=== PATIENT | female | born 1925 | race Caucasian/White ===

== ENCOUNTER → 2017-03-12 | Outpatient (CLI) | payer OTHER ==
[~2017-03-12] MED LIST: ACETAMINOPHEN650 M1 PO; AMLODIPINE BESYL5 MG PO; BAYER CHEWABLE81 MG PO; HAZAR PO; HYZAAR 100-12.1 EACH PO; HYZAAR 100-25 T1 TA1 PO; LASIX20 MG PO; LOSARTAN POTASS50 MG PO; METOPROLOL TAR25 MG PO; NORVASC PO; PANTOPRAZOLE SO40 MG PO; SYNTHROID PO; SYNTHROID125 PO
--- NOTE | ~2017-03-12 | MY11 ---
[facility] A Service of [facility] RADIOLOGY TEXT RESULTS PATIENT: ANGEL GARCÍA LOCATION: [facility] : [birth year] UNIT #: [id number] AGE: [address]: Trina Turner MD SEX: F ORDER DR: [id number] [facility] [address] [place], [place] [address] [id number] O MR#: [id number] Acc #: [id number] NAME: ANGEL GARCÍA : 1925 SEX: F STUDY DATE/TIME: 03/12/2017 9:23 UNIT: [facility] ROOM: STUDY DESCRIPTION: MY Mammogram Screening Dig Alvaro Attending Physician: Trina Turner M.D. Referring Physician: Trina Turner M.D. Ordering Physician: Trina Turner M.D. Primary Care Physician: Trina Turner M.D. MEDICAL IMAGING REPORT This report is preliminary unless electronic signature is present EXAM Digital screening mammogram, 03/12/2017 HISTORY 89-year-old woman with no risk elevation. Annual screening. COMPARISON Mammograms 09/14/2011, 04/27/2014, 08/10/2015. FINDINGS Digital imaging of each breast was completed utilizing screening protocol. Review includes FDA-approved CAD device. Breast parenchyma is partially fatty replaced. Occasional benign calcification noted in each breast. I see no interval occurring mass. There are no suspicious microcalcifications and no architectural deformity. IMPRESSION Negative mammogram. Annual screening is optional at this age. Patients over the age of 40 are entered into a reminder system with target due date for the next mammogram. A result letter will also be sent to the patient. BIRADS: 1 Negative STAT * RESULT Dictated by... Arnel Sims M.D. THIS IS AN ELECTRONICALLY VERIFIED REPORT Arnel Sims M.D. at 03/12/2017 10:50 AM JEVON/philip STS. [facility] A Service of [facility] & [facility] RADIOLOGY TEXT RESULTS PATIENT: NAGEL GARCÍA LOCATION: [place] #: [id number] : [birth year] UNIT #: [id number] AGE: [address]: Trina Turner MD SEX: F ORDER DR: TD: 03/12/2017 10:18 JOB #: [id number] MEDICAL IMAGING REPORT Page 1 of 1 COPY
--- NOTE | ~2017-03-12 | CR63 ---
[facility] A Service of [facility] RADIOLOGY TEXT RESULTS PATIENT: ANGEL GARCÍA LOCATION: [facility] : [birth year] UNIT #: [id number] AGE: [address]: Trina Turner MD SEX: F ORDER DR: [id number] [facility] [address] [facility]. [place], [place] [address] [id number] O MR#: [id number] Acc #: [id number] NAME: ANGEL GARCÍA : 1925 SEX: F STUDY DATE/TIME: 03/12/2017 10:14 UNIT: [facility] ROOM: STUDY DESCRIPTION: CR Chest 2 View Attending Physician: Trina Turner M.D. Referring Physician: Trina Turner M.D. Ordering Physician: Srinivas Turner M.D. Primary Care Physician: Trina Turner M.D. MEDICAL IMAGING REPORT This report is preliminary unless electronic signature is present EXAM Chest, 2 views, 03/12/2017, 1014 hours. CLINICAL HISTORY 89-year-old woman with chronic cough for 6 months, shortness of air, and weight loss. COMPARISON 09/12/2011 FINDINGS Upright PA and lateral views of the chest demonstrate stable moderate cardiomegaly and tortuous atherosclerotic aorta. The pulmonary vasculature is normal. The lungs demonstrate calcified granulomatous changes. There is no definite acute pulmonary density or effusion. IMPRESSION Stable moderate cardiomegaly and tortuous aorta. Lungs demonstrate benign calcified granulomatous change. There is no acute cardiopulmonary findings. No appreciable change from 09/12/2011. Dictated by... Rita Ramires M.D. THIS IS AN ELECTRONICALLY VERIFIED REPORT Rita Ramires M.D. at 03/13/2017 9:28 AM TROYM/ravinder TD: 03/12/2017 14:41 JOB #: [id number] [facility] A Service [facility] RADIOLOGY TEXT RESULTS PATIENT: ANGEL GARCÍA LOCATION: [facility] : [birth year] UNIT #: [id number] AGE: [address]: Trina Turner MD SEX: F ORDER DR: MEDICAL IMAGING REPORT Page 1 of 1 COPY
== END | disposition home or self-care (01) ==
LOC: CWCC 09:14 → CRAD 09:14 → CWCC 09:15
DX: Z12.31 Encounter for screening mammogram for malignant neoplasm of breast (principal); R05 Cough; R63.4 Abnormal weight loss; I51.7 Cardiomegaly; I77.1 Stricture of artery; J84.10 Pulmonary fibrosis, unspecified
CPT/HCPCS: 71020; G0202

== ENCOUNTER 2017-04-15 17:10 | Observation (INO) | payer OTHER ==
--- NOTE | ~2017-04-15 | EKG ---
PATIENT: ANGEL GARCÍA UNIT #: [id number] Ventricular Rate: 87 BPM Atrial Rate: 87 BPM P-R Interval: 186 ms QRS Duration: 108 ms Q-T Interval: 348 ms QTC Calculation(Bezet): 418 ms P Mansfield: 70 degrees Calculated R Mansfield: -40 degrees Calculated T Mansfield: 43 degrees Diagnosis Line: Normal sinus rhythm Diagnosis Line: Biatrial enlargement Diagnosis Line: Left axis deviation Diagnosis Line: Left anterior fascicular block Diagnosis Line: Incomplete right bundle branch block Diagnosis Line: Abnormal ECG Diagnosis Line: When compared with ECG of 17-MAR-2016 09:07, Diagnosis Line: Premature ventricular complexes are no longer Diagnosis Line: Present Diagnosis Line: Confirmed by CHRISTIANO DOMINGUEZ MD ([id number]) on Diagnosis Line: 04/16/2017 9:11:11 PM INTERPRETING MD: GEM
--- NOTE | ~2017-04-15 | DS ---
Unit #: [id number] #: [id number] Patient: BARBIE BURR [id number] [address] [address] [id number] I MR#: [id number] NAME: BARBIE BURR. ROOM: 550 Age: 89 Sex: F Admission Date: 04/15/2017 : 1925 Discharge Date: 04/19/2017 Attending Physician: Ajay Armendariz M.D. Primary Care Physician: Trina Turner M.D. DISCHARGE SUMMARY FINAL DIAGNOSES 1. Chest pain: Acute myocardial infarction has been ruled out. It is kind of atypical. 2. There is a possibility of interstitial lung disease. 3. Valvular heart disease with severe mitral valve prolapse and severe mitral regurgitation, moderate tricuspid regurgitation, right ventricular systolic pressure is 45 to 50 mm and left ventricular ejection fraction of 55%. 4. Hypothyroidism. 5. Hypernatremia which is resolved. 6. Hypokalemia which is improved. 7. Leukocytosis, resolved. DISCHARGE MEDICATIONS 1. Tylenol 650 q.6 p.r.n. 2. Norvasc 5 mg daily. 3. Hyzaar 110/12.5, one tablet daily. 4. Protonix 40 mg daily. 5. Aspirin 81 mg daily. 6. Synthroid 100 mcg p.o. daily. CONSULTATION DURING HOSPITALIZATION 1. Dr. Sheehan - Cardiology services. 2. Dr. Cabello - Pulmonary services. LAB WORKUP ON DISCHARGE Procalcitonin level 0.08. CBC shows WBC 12.2, hemoglobin 11.9, hematocrit 36.1, platelet count of 248. BMP shows sodium 134, potassium 4.0, chloride 103, BUN 28, creatinine 0.7. Free T4 is 1.16 and free T3 is 2.2 which is still low. TSH is 0.30. Troponin 0.03. Ultrasound of lower extremity - negative for DVT. CTA of the chest was done which shows no visible pulmonary embolism. D-dimer was elevated to 997. BNP 76, in normal range. HOSPITAL COURSE Ms. Barbie Burr is an 89-year-old female, very healthy and very active, Unit #: [id number] #: [id number] Patient: BARBIE BURR still works in [email or web address], came with a complaint of chest pain. The patient was evaluated by Dr. Sheehan, cardiology services. Acute myocardial infarction was ruled out. CTA of the chest was done which ruled out for pulmonary embolism. It has been years since she has had ischemic heart disease workup. The patient had a long discussion with Dr. Sheehan. The patient has refused at this time. She does have significant valvular heart disease which includes severe mitral regurgitation and mitral valve prolapse. She follows up with Dr. Zimmerman. The patient continued to have cough and some chest pain. The patient was seen by Dr. Cabello from pulmonary services. The patient's CT of chest is concerning for interstitial lung disease. It is unclear based on this imaging if she has typical idiopathic pulmonary fibrosis versus interstitial lung disease. The patient will need dedicated high resolution CT chest and she will need PFT as outpatient. The patient will follow with Dr. Cabello as outpatient to continue with this workup. The patient was also started on PPI and she seems to have gotten better with cough. Maybe there is some component of gastroesophageal reflux and that could cause interstitial disease too. The patient is doing well and is being discharged home. EXAMINATION ON DISCHARGE Blood pressure 123/77, respiratory rate 188, pulse is 69, temperature 98.2, oxygen saturation is 99%. HEENT: Head is normocephalic. CHEST: Fair air entry. CVS: Regular rhythm. Murmur is heard. EXTREMITIES: Negative edema. DISCHARGE INSTRUCTIONS 1. The patient is being discharged home in stable condition. 2. Medication as per Med Rec. 3. Followup with Dr. Cabello in two weeks. Do have a workup done, possible high resolution CT scan and PFT. 4. [facility] to eval and treat. 5. Patient's TSH is low with low T3. This needs to be addressed as outpatient. She is on Synthroid. Dictated by... Eugenio Farias TD: 04/22/2017 08:29 JOB #: [id number] Unit #: [id number] #: [id number] Patient: BARBIE BURR DISCHARGE SUMMARY Page 1 of 1 X Marycarmen Caballero MD X DISCHARGE SUMMARY
--- NOTE | ~2017-04-15 | CO ---
Unit #: [id number] #: [id number] Patient: ANGEL BURR [id number] [address] [place], [place] [address] [id number] I MR#: [id number] NAME: ANGEL BURR. ROOM: 550 Age: 89 Sex: F Admission Date: 04/15/2017 : 1925 Attending Physician: Ajay Armendariz M.D. Primary Care Physician: Trina Turner M.D. Consultation Date: 04/16/2017 CONSULTATION REPORT REASON FOR CONSULTATION Chest pain. HISTORY OF PRESENT ILLNESS This is an 89-year-old white female with known history of having severe mitral regurgitation, mitral valve prolapse, had seen Dr. Zimmerman in the past and is not a surgical candidate at this time for valve replacement. The patient has also hypertension, hypothyroidism. Last stress test was a few years ago that was normal. The patient came into the emergency room on this admission with substernal chest tightness. She says for about a week that she has been having some tingling and numbness in her bilateral hands. She does not think there is swelling, but she said she has not felt well for about a week with no specific symptoms. She said yesterday she was sitting after breakfast and just started feeling some midsternal chest pressure that started more in the midsternal region and she said it radiated up to the right anterior chest wall. She said it was a little worse with deep breathing or cough. She says she has a little bit of swelling in her lower extremity especially in the left, but she is on a water pill. She denies that the discomfort radiated up into the neck, bilateral jaws, or shoulders. She has not had any palpitations. No dizziness, presyncope, or syncope. No nausea, vomiting, or diarrhea. Has occasional dry cough, but no fever or chills. In the emergency room, the patient's blood pressure was 167/77, heart rate was 90, respirations 18, temperature 98.3, O2 saturations 97% on room air. Her EKG shows normal sinus rhythm, did show some biatrial enlargement and an incomplete right bundle-branch block, left ventricular hypertrophy. The patient's initial labs, creatinine was 0.8, sodium is down to 132, potassium 3.7. BNP 76. Initial cardiac enzymes are negative. D-dimer is 997. The patient's x-rays showed cardiomegaly, otherwise nothing acute. CT of chest with PE protocol, no visible pulmonary embolism. There was some interstitial prominence in both lung bases which is probably could be fibrosis. The patient was given aspirin and given some IV fluids. Cardiology has been consulted to assist with evaluation and management. PAST MEDICAL HISTORY 1. History of severe mitral regurgitation and mitral valve prolapse. 2. Last 2D echo in March 2016 revealed LVEF of 55% with severe mitral valve prolapse, mitral valve leaflet prolapse, and severe mitral regurgitation, moderate tricuspid regurgitation with elevated RVSP 45 to 50 mmHg and mild LVH, mildly dilated left atrium. Unit #: [id number] #: [id number] Patient: ANGEL BURR 3. In 2008, exercise Cardiolite stress test, told it was normal, details unavailable. 4. Hypertension. 5. Hypothyroidism. 6. Nonsmoker. 7. Active with Dr. Astudillo at [facility]. PAST SURGICAL HISTORY None. HOME MEDICATIONS 1. Norvasc 5 mg p.o. daily. 2. Synthroid 100 mcg p.o. daily. 3. Hyzaar 100/12.5 one tablet p.o. daily. ALLERGIES No known drug allergies. SOCIAL HISTORY The patient lives with her family. She tries to do some light chores around the house. No alcohol, tobacco, or illicit drug abuse. FAMILY HISTORY No known coronary artery disease in immediate family members. REVIEW OF SYSTEMS See details in HPI. PHYSICAL EXAMINATION GENERAL: Ms. Burr is an 89-year-old white female, in no acute respiratory distress. She is awake, alert, and oriented. VITAL SIGNS: Blood pressure is 118/68, heart rate 88, respirations 16, temperature 99.1, O2 saturations 96% on room air. NECK: Trachea midline. No thyromegaly or lymphadenopathy. Normal carotid upstrokes. No jugular venous distention. HEART: S1 and S2. Regular rate and rhythm. 3/6 systolic murmur over the mitral area of left sternal border. LUNGS: Diminished, otherwise clear. ABDOMEN: Soft and nontender. EXTREMITIES: Pedal pulses are palpable. Trace pedal edema. DIAGNOSTIC STUDIES LABORATORY RESULTS: Glucose is 118, BUN 22, creatinine 0.8, EGFR 65.4, sodium was 132 on admission and this morning is 129, potassium is 3.7, chloride 96, CO2 of 25, calcium is 8.5, total protein 7.5, albumin 4.0, bilirubin total 0.8, AST 22, ALT 12, and alkaline phosphatase is 76. BNP 76. WBC 15.6, hemoglobin 12.9, hematocrit 37.9, platelets is 224. Initial cardiac enzymes; CK-MB is less than 1.0, troponin less than 0.05. INR is 1.0. D-dimer is 997. Urinalysis is pending. Chest x-ray reveals cardiomegaly and granulomatous disease, some scarring or atelectasis in the bases. CT of the chest with PE protocol shows no visible pulmonary embolism, interstitial prominence is noted in both lung bases which is probably fibrosis. EKG shows normal sinus rhythm with ventricular rate 87 beats per minute, Unit #: [id number] #: [id number] Patient: ANGEL BURR biatrial enlargement, left axis deviation, incomplete right bundle-branch block, left ventricular hypertrophy with ventricular rate of 87 beats per minute. IMPRESSION 1. Chest pain, questionable etiology. 2. Severe mitral regurgitation, severe mitral valve prolapse. 3. Elevated D-dimer. 4. Left ventricular ejection fraction of 55% on last 2D echo on 03/23/2016 with some moderate tricuspid regurgitation, elevated right ventricular systolic pressure of 45 to 50 mmHg. 5. Hypertension. 6. Hypothyroidism. 7. Hyponatremia. PLAN 1. Cardiology consult to assist with evaluating the patient's chest pain. 2. A CT of the chest to rule out PE, has been done and it is negative. The patient's chest pain is somewhat atypical; however, it has been years since she had ischemic heart disease workup. However, Dr. Sheehan had a long discussion with the patient, and she had refused, she has to go to have her valve replaced and she does not want to have a cardiac catheterization, and so they agreed that there is no point in doing a stress test. Her cardiac enzymes have been remaining negative. Her EKG does not show anything acute, so we will continue with conservative medical management. 3. We will check troponin and EKG in the morning. If those are negative, she will be permissible to be discharged home with followup with Dr. Astduillo, her senior systems analyst at [facility]. 4. The patient's sodium is low, maybe is likely secondary to being on hydrochlorothiazide. We will make any adjustments to make final recommendations before discharge. 5. Her heart rate and blood pressure are stable. On exam, there is no signs or symptoms of acute congestive heart failure. 6. The patient is on daily dose of Lovenox, so we will monitor. 7. The patient was started on Protonix, so her symptoms may even be some type of reflux or GI in nature. 8. Further recommendations pending per Dr. Sheehan. Thank you very much for allowing us to assist in care. Dictated by... Bret Isaacs/torrie TD: 04/17/2017 12:59 JOB #: [id number] CC: Cassius Astudillo M.D. Unit #: [id number] #: [id number] Patient: ANGEL BURR CONSULTATION REPORT Page 1 of 1 X Belia Reyes APRN X CONSULTATION REPORT
--- NOTE | ~2017-04-15 | CR72 ---
[facility] of [facility] RADIOLOGY TEXT RESULTS PATIENT: ANGEL GARCÍA LOCATION: [place] [address] : [birth year] UNIT #: [id number] AGE: [address]: Ajay Armendariz MD SEX: F ORDER DR: [id number] [facility] [address] [place], [place] [address] [id number] E MR#: [id number] Acc #: [id number] NAME: ANGEL GARCÍA. : 1925 SEX: F STUDY DATE/TIME: 04/15/2017 18:10 UNIT: [facility] ROOM: STUDY DESCRIPTION: CR Chest Single View Portable Attending Physician: Chan Bowles D.O. Ordering Physician: Chung Carey M.D. Primary Care Physician: Trina Turner M.D. MEDICAL IMAGING REPORT This report is preliminary unless electronic signature is present EXAM Portable chest, 04/15/2017 INDICATIONS Chest pain, shortness of air and cough today. FINDINGS AP portable chest is compared with 03/12/2017. Cardiomegaly is again seen. There is diffuse atherosclerotic disease in the aorta. There is degenerative disease and scoliosis in the spine. Scattered granulomatous calcifications are noted in the lungs. There is some mild atelectasis or scarring in the bases. No pneumothorax. IMPRESSION Cardiomegaly and old granulomatous disease. There is some scarring or atelectasis in the bases. Dictated by... Janes Zaragoza Jr., M.D. THIS IS AN ELECTRONICALLY VERIFIED REPORT Janes Zaragoza Jr., M.D. at 04/16/2017 10:02 AM NUSRAT/travis TD: 04/16/2017 04:43 JOB #: [id number] MEDICAL IMAGING REPORT Page 1 of 1 COPY
--- NOTE | ~2017-04-15 | EKG ---
PATIENT: ANGEL GARCÍA UNIT #: [id number] Ventricular Rate: 74 BPM Atrial Rate: 74 BPM P-R Interval: 190 ms QRS Duration: 108 ms Q-T Interval: 384 ms QTC Calculation(Bezet): 426 ms P Holcomb: 72 degrees Calculated R Holcomb: -38 degrees Calculated T Holcomb: 39 degrees Diagnosis Line: Normal sinus rhythm Diagnosis Line: Left axis deviation Diagnosis Line: Inferior infarct , age undetermined Diagnosis Line: Abnormal ECG Diagnosis Line: When compared with ECG of 15-APR-2017 17:18, Diagnosis Line: No significant change was found Diagnosis Line: Confirmed by JENNIFER DARLING MD ([id number]) on 04/17/2017 Diagnosis Line: 7:44:02 AM INTERPRETING MD: LISSET ADAN
--- NOTE | ~2017-04-15 | US84 ---
[id number] [facility] [address] [place], [place] [address] [id number] I MR#: [id number] Acc #: [id number] NAME: ANGEL GARCÍA : 1925 SEX: F STUDY DATE/TIME: 04/16/2017 18:02 UNIT: C5B ROOM: 550 STUDY DESCRIPTION: US LE Veins Complete Alvaor Stdy Attending Physician: Ajay Armendariz M.D. Ordering Physician: Marycarmen Caballero M.D. Primary Care Physician: Trina Turner M.D. MEDICAL IMAGING REPORT This report is preliminary unless electronic signature is present EXAM Bilateral lower extremity venous duplex 04/16/2017 HISTORY Bilateral lower extremity edema for 2 years increasing recently. Evaluate for deep vein thrombosis. TECHNIQUE Venous ultrasound examination of both lower extremities was performed using grayscale, spectral Doppler and color flow Doppler imaging. FINDINGS The examination is negative. There is no evidence of deep venous thrombus from the groin to the lower calf bilaterally. Visualized greater saphenous veins are also patent. IMPRESSION Negative examination. No evidence of lower extremity deep venous thrombosis. Dictated by... Arjun Damian M.D. THIS IS AN ELECTRONICALLY VERIFIED REPORT Arjun Damian M.D. at 04/17/2017 8:30 AM LINETTE/rossy TD: 04/16/2017 21:09 JOB #: [id number] MEDICAL IMAGING REPORT Page 1 of 1 COPY
--- NOTE | ~2017-04-15 | CT16 ---
[facility] A Service of [facility] RADIOLOGY TEXT RESULTS PATIENT: ANGEL GARCÍA LOCATION: [facility] 550-01 : [birth year] UNIT #: [id number] AGE: [address]: Ajay Armendariz MD SEX: F ORDER DR: [id number] [facility] [address] [place], [place] [address] [id number] I MR#: [id number] Acc #: [id number] NAME: ANGEL GARCÍA. : 1925 SEX: F STUDY DATE/TIME: 04/15/2017 22:09 UNIT: [facility] ROOM: [facility] STUDY DESCRIPTION: CT Angio Chest for PE Attending Physician: Ajay Armendariz M.D. Ordering Physician: Chan Bowles D.O. Primary Care Physician: Trina Turner M.D. MEDICAL IMAGING REPORT This report is preliminary unless electronic signature is present EXAM CT scan of the chest with pulmonary embolus protocol HISTORY Chest tightness off and on all day. Elevated D-dimer. TECHNIQUE The patient was given 100 mL of Isovue 370 and spiral imaging was performed through the chest. 3-D reconstructions of the pulmonary arteries were generated. This CT exam was performed with one or more of the following radiation dose reduction techniques: automatic exposure control, adjustment of mA and/or kV according to patient size, and iterative reconstruction. FINDINGS The thyroid gland is small or absent. The aorta is normal in size and it is unopacified. The pulmonary arteries are optimally opacified. There is no visible pulmonary embolus. There is motion affecting the lung bases. There is a calcified granuloma in the right upper lobe and there is some fibrosis in both lung bases. The bones are unremarkable. IMPRESSION 1. The imaging through the lung bases is degraded by respiratory motion. 2. There is no visible pulmonary embolus. 3. Interstitial prominence is noted in both lung bases which is probably fibrosis. Dictated by... Dale Rivas M.D. THIS IS AN ELECTRONICALLY VERIFIED REPORT [facility] A Service of [facility] RADIOLOGY TEXT RESULTS PATIENT: ANGEL GARCÍA LOCATION: [facility] 550-01 : [birth year] UNIT #: [id number] AGE: [address]: Ajay Armendariz MD SEX: F ORDER DR: Dale Rivas M.D. at 04/16/2017 1:22 PM [place] TD: 04/16/2017 09:08 JOB #: [id number] MEDICAL IMAGING REPORT Page 1 of 1 COPY
--- NOTE | ~2017-04-15 | CO ---
Unit #: [id number] #: [id number] Patient: ANGEL GARCÍA [id number] [place], [place] [address] [id number] MR#: [id number] NAME: ANGEL GARCÍA ROOM: 550 Age: 89 Sex: F Admission Date: 04/15/2017 : 1925 Attending Physician: Ajay Armendariz M.D. Primary Care Physician: Trina Turner M.D. Consultation Date: 04/17/2017 CONSULTATION REPORT REASON FOR CONSULTATION Cough and shortness of breath. HISTORY OF PRESENT ILLNESS This is a very pleasant 89-year-old female with a past medical history significant for significant mitral valve prolapse with mitral regurgitation, hypertension, hypothyroidism. The patient presented to the emergency room with the sudden onset of chest discomfort that lasted for minute, associated with shortness of breath. The patient stated that she is still employed at [employer] and she is very active. She was told in the past that with her mitral regurgitation she would be always dyspneic and fatigued, but she said she is doing pretty well. However, she noted that over the last two to three months she started having some dry hacking cough, mainly at night when she is lying in flat. She is slightly more dyspneic. The patient never smoked. She still is active, as mentioned above. She denied any history of rheumatoid arthritis or lupus in her family. PAST MEDICAL HISTORY 1. Hypertension. 2. Hypothyroidism. 3. Gastroesophageal reflux disease. PAST SURGICAL HISTORY None. SOCIAL HISTORY The patient is still working at [employer]. No history of alcohol, drug abuse or smoking. FAMILY HISTORY Unremarkable. ALLERGIES No known drug allergies. HOME MEDICATIONS 1. Synthroid. 2. Cozaar. 3. Norvasc. 4. Lasix. REVIEW OF SYSTEMS Unit #: [id number] #: [id number] Patient: ANGEL GARCÍA Twelve point review of systems was obtained and was negative except for those mentioned in history of present illness. PHYSICAL EXAMINATION GENERAL: The patient is very pleasant and in no acute distress. VITALS: Blood pressure 123/67, respiratory rate 16, O2 saturations 98% on room air. HEENT: Atraumatic, normocephalic. Extraocular muscles intact. NECK: Supple. No jugular venous distension. No lymphadenopathy. CHEST: Bilateral fine rhonchi at the bases. HEART: S1 and S2 with systolic murmur. ABDOMEN: Soft and nontender. Bowel sounds positive. No hepatosplenomegaly. EXTREMITIES: Trace edema. SKIN: No rashes. NEUROLOGIC: HAND PATCHER, awake, alert and oriented times three. No focal motor/sensory deficits. DIAGNOSTIC STUDIES IMAGING: CT of the chest concerning for interstitial lung disease. LABORATORY: Creatinine 0.7, sodium 132, white blood cell count 12.7, hemoglobin 13.0. ASSESSMENT 1. Atypical chest pain. 2. Interstitial lung disease. IPS versus NSIP. 3. Hypertension. 4. Hypothyroidism. 5. Gastroesophageal reflux disease. 6. Severe mitral regurgitation. PLAN 1. CT of the chest is very concerning for interstitial lung disease. It is unclear based on this imaging if she has a typical idiopathic pulmonary fibrosis versus interstitial lung disease related to an autoimmune process. Given her age, I doubt that this is autoimmune, but she still will need a basic workup including LUCILA and rheumatoid factor. 2. The patient will need dedicated high-resolution CT chest to better assess her lung parenchyma. 3. She will need PFTs as an outpatient. Based on the above testing and results, we will determine if the patient will need treatment for IPS or any other process. 4. I will continue the patient on PPI as Gastroesophageal reflux disease is well known trigger factor for interstitial lung disease. I would like to thank Dr. Caballero for allowing me to be of this patient's care. Dictated by... Eugenio Goldberg TD: 04/17/2017 12:23 Unit #: [id number] #: [id number] Patient: ANGEL GARCÍA JOB #: [id number] CONSULTATION REPORT Page 1 of 1 X JAMES HOOD MD X CONSULTATION REPORT
[~2017-04-15 17:10] MED LIST changes: -ACETAMINOPHEN650 M1 PO; -BAYER CHEWABLE81 MG PO; -HYZAAR 100-12.1 EACH PO; -PANTOPRAZOLE SO40 MG PO
[2017-04-15 18:51] LABS: POC - CKMB <1.0 ng/mL (0.0-7.9); POC - TROPONIN <0.05 ng/mL (<=0.05)
[2017-04-15 19:02] LABS: BASOPHIL# 0.1 X10e3 (0-0.3); BASOPHIL% 0.3 % (0-2.5); EOSINOPHIL# 0.1 X10e3 (0-0.7); EOSINOPHIL% 0.7 % (0.0-7.0); HEMATOCRIT 41.6 % (35.0-45.0); HEMOGLOBIN 13.6 gm/dL (12.0-16.0); LYMPHOCYTE# 1.3 X10e3 (1.0-3.5); LYMPHOCYTE% 7.5 % (17.0-45.0); MEAN CELL VOLUME 91.8 FL (83-96); MEAN CORPUSCULAR HEMOGLOBIN 30.1 PG (28-34); MEAN CORPUSCULAR HGB CONC 32.8 g/dL (30-36); MEAN PLATELET VOLUME 8.5 FL (6.5-11.5); MONOCYTE# 1.7 X10e3 (0-1.0); MONOCYTE% 9.5 % (3.0-12.0); NEUTROPHIL# 14.4 X10e3 (1.5-7.1); PLATELET COUNT 239 X10e3 (140-420); RED BLOOD COUNT 4.53 X10e (3.90-5.30); RED CELL DISTRIBUTION WIDTH 13.4 % (11.0-15.5); WHITE BLOOD COUNT 17.5 X10e3 (4.0-10.5)
[2017-04-15 19:03] LABS: PARTIAL THROMBOPLASTIN TIME 26.4 SECONDS (23.5-31.3)
[2017-04-15 19:06] LABS: DIFF IND YES
[2017-04-15 19:18] LABS: BILIRUBIN, DIRECT 0.1 mg/dL (0.0-0.2); BILIRUBIN,INDIRECT 0.7 mg/dL (0.0-0.9); BILIRUBIN,TOTAL 0.8 mg/dL (0.2-2.0); BUN/CREATININE RATIO 28.88; CALCIUM SERUM 9.3 mg/dL (8.4-10.2); CREATININE SERUM 0.9 mg/dL (0.6-1.4); GLOM FILT RATE Estimated 56.7 mL/min (>60); POTASSIUM 4.1 mmol/L (3.5-5.1); PROTEIN TOTAL SERUM 7.5 g/dL (6.0-8.3)
[2017-04-15 19:20] LABS: PLATELET ESTIMATE NORMAL (NORMAL); RBC NORMAL YES
[2017-04-15] MEDS ORDERED: NORVASC PO (21:53)
[2017-04-15] MEDS ORDERED: HYZAAR 100-12.1 EACH PO (21:54)
[2017-04-15] MEDS ORDERED: SYNTHROID PO (21:54)
[2017-04-15 21:56] LABS: POC - CKMB <1.0 ng/mL (0.0-7.9); POC - TROPONIN <0.05 ng/mL (<=0.05)
[2017-04-15 23:16] LABS: BASOPHIL# 0.1 X10e3 (0-0.3); BASOPHIL% 0.4 % (0-2.5); DIFF IND YES; EOSINOPHIL# 0.1 X10e3 (0-0.7); EOSINOPHIL% 0.4 % (0.0-7.0); HEMATOCRIT 37.8 % (35.0-45.0); HEMOGLOBIN 12.8 gm/dL (12.0-16.0); LYMPHOCYTE# 1.2 X10e3 (1.0-3.5); LYMPHOCYTE% 7.9 % (17.0-45.0); MEAN CELL VOLUME 89.6 FL (83-96); MEAN CORPUSCULAR HEMOGLOBIN 30.4 PG (28-34); MEAN CORPUSCULAR HGB CONC 33.9 g/dL (30-36); MEAN PLATELET VOLUME 7.9 FL (6.5-11.5); MONOCYTE# 1.6 X10e3 (0-1.0); MONOCYTE% 10.6 % (3.0-12.0); NEUTROPHIL# 12.6 X10e3 (1.5-7.1); NEUTROPHIL% 80.7 % (40-75); PLATELET COUNT 224 X10e3 (140-420); RED BLOOD COUNT 4.22 X10e (3.90-5.30); RED CELL DISTRIBUTION WIDTH 13.2 % (11.0-15.5); WHITE BLOOD COUNT 15.6 X10e3 (4.0-10.5)
[2017-04-15 23:32] LABS: HYPERSEGMENTED POLYS PRESENT; PLATELET ESTIMATE NORMAL (NORMAL); RBC NORMAL YES
[2017-04-15 23:39] LABS: BUN/CREATININE RATIO 27.5; CALCIUM SERUM 8.5 mg/dL (8.4-10.2); CREATININE SERUM 0.8 mg/dL (0.6-1.4); GLOM FILT RATE Estimated 65.4 mL/min (>60); POTASSIUM 3.7 mmol/L (3.5-5.1)
[2017-04-16 01:34] LABS: CK TOTAL 57 IU/L (26-140)
[2017-04-16 07:17] LABS: CK TOTAL 51 IU/L (26-140)
[2017-04-17 05:27] LABS: HEMATOCRIT 38.4 % (35.0-45.0); MEAN CELL VOLUME 89.7 FL (83-96); MEAN CORPUSCULAR HEMOGLOBIN 30.4 PG (28-34); MEAN CORPUSCULAR HGB CONC 33.9 g/dL (30-36); MEAN PLATELET VOLUME 8.5 FL (6.5-11.5); RED BLOOD COUNT 4.28 X10e (3.90-5.30); RED CELL DISTRIBUTION WIDTH 13.2 % (11.0-15.5); WHITE BLOOD COUNT 12.7 X10e3 (4.0-10.5)
[2017-04-17 06:45] LABS: BUN/CREATININE RATIO 34.28; CALCIUM SERUM 8.5 mg/dL (8.4-10.2); CREATININE SERUM 0.7 mg/dL (0.6-1.4); GLOM FILT RATE Estimated 76.8 mL/min (>60); POTASSIUM 3.5 mmol/L (3.5-5.1)
[2017-04-17 09:05] LABS: FREE T3 2.2 pg/mL (2.5-3.9)
[2017-04-17 09:07] LABS: FREE THYROXIN (T4) 1.16 ng/dL (0.58-1.64)
[2017-04-17 18:26] LABS: URINE SOURCE CLEAN CATCH
[2017-04-17 18:35] LABS: URINE APPEARANCE CLEAR; URINE BILIRUBIN NEG (NEG); URINE BLOOD 1+ (NEG); URINE COLOR YELLOW; URINE GLUCOSE NEG (NEG); URINE KETONE NEG (NEG); URINE LEUKOCYTE ESTERASE 2+ (NEG); URINE NITRATE NEG (NEG); URINE PROTEIN NEG (NEG); URINE SPECIFIC GRAVITY 1.014 (1.003-1.035)
[2017-04-17 18:36] LABS: CULTURE INDICATED? YES; U HYALINE CASTS AUWI 0-2 /[LPF]; URINE BACTERIA AUWI 1+ (NEGATIVE); URINE SQUAMOUS EPITHELIAL CELL OCC /[HPF]; UWBCS1 AUWI 25-50 (0-5)
[2017-04-18 06:34] LABS: CALCIUM SERUM 8.7 mg/dL (8.4-10.2); CREATININE SERUM 0.7 mg/dL (0.6-1.4); GLOM FILT RATE Estimated 76.8 mL/min (>60)
[2017-04-19 06:05] LABS: HEMATOCRIT 36.1 % (35.0-45.0); HEMOGLOBIN 11.9 gm/dL (12.0-16.0); MEAN CELL VOLUME 90.6 FL (83-96); MEAN CORPUSCULAR HEMOGLOBIN 29.8 PG (28-34); MEAN CORPUSCULAR HGB CONC 32.9 g/dL (30-36); MEAN PLATELET VOLUME 8.6 FL (6.5-11.5); RED BLOOD COUNT 3.98 X10e (3.90-5.30); WHITE BLOOD COUNT 12.2 X10e3 (4.0-10.5)
[2017-04-19] MEDS ORDERED: ACETAMINOPHEN650 M1 PO (12:39)
[2017-04-19] MEDS ORDERED: BAYER CHEWABLE81 MG PO (12:43)
[2017-04-19] MEDS ORDERED: PANTOPRAZOLE SO40 MG PO (12:45)
== END 2017-04-19 18:33 | disposition home or self-care (01) ==
LOC: CED 17:10 → C5B 21:45 → CED 22:18 → C5B 22:18
PROVIDERS: Emergency Medicine; Hospitalist; Nurse Practitioner; Physician Assistant Medical
DX: R07.89 Other chest pain (principal); I08.1 Rheumatic disorders of both mitral and tricuspid valves; E03.9 Hypothyroidism, unspecified; E87.6 Hypokalemia; D72.829 Elevated white blood cell count, unspecified; Z79.82 Long term (current) use of aspirin; J84.9 Interstitial pulmonary disease, unspecified; K21.9 Gastro-esophageal reflux disease without esophagitis; E87.1 Hypo-osmolality and hyponatremia; R60.0 Localized edema
CPT/HCPCS: 36415; 71010; 71275; 80048; 80076; 81003; 82308; 82550; 82553; 83880; 84146; 84439; 84443; 84481; 84484; 85025; 85027; 85379; 85610; 85730; 87086; 93005; 93970; 96372; 96374; 97116; 97161; 97165; 99285; G0378; G8978-GP; G8979-GP; G8980-GP; G8987-GO; G8988-GO; G8989-GO; J1650; Q9967